=== PATIENT | female | born 1980 | race Caucasian/White ===

== ENCOUNTER 2022-07-16 11:47 | Emergency (ER) | payer OTHER, SELFPAY ==
--- NOTE | 2022-07-16 12:50 | PC.NURSE ---
PT TOLD STAFF SHE GOT AN APPOINTMENT WITH HER PRIMARY DOCTOR AND WAS LEAVING.
== END 2022-07-16 12:50 | disposition left against medical advice (07) ==
LOC: EXPBETH 11:52
PROVIDERS: Emergency Provider Nurse Practitioner; PCP Nurse Practitioner Family
DX: H57.9 Unspecified disorder of eye and adnexa (principal)
CPT/HCPCS: 99199